=== PATIENT | male | born 1975 | race Caucasian/White ===

== ENCOUNTER 2018-09-28 21:50 | Emergency (ER) ==
[2018-09-28 22:05] VITALS: BP 125/82; TEMP 99.2; BMI 29.0
--- NOTE | 2018-09-28 22:26 | ED.PDOC ---
General ED Provider: Dr. RODRIGO GOEL-ER Chief Complaint: Bite Stated Complaint: renee got a wound on my face and its better Time Seen by Physician: 21:55 Mode of Arrival: Walk-In Information Source: Patient Exam Limitations: No limitations Primary Care Provider: RODRIGO GOEL Nursing and Triage Documentation Reviewed and Agree: Yes Does patient meet sepsis criteria?: No System Inflammatory Response Syndrome: Not Applicable Sepsis Protocol: For patient's 13 years and over: Temp is 96.8 and below OR 101 and greater Pulse >90 BPM Resp >20/minute Acutely Altered Mental Status Are patient's symptoms suggestive of a new infection, such as: -Pneumonia -Skin, Soft Tissue -Endocarditis -UTI -Bone, Joint Infection -Implantable Device -Acute Abdominal Infection -Wound Infection -Meningitis -Blood Stream Catheter Infection -Unknown Skin Complaint Exam - Skin/Soft Tissue Complaint/Exam Onset/Duration: 3 days Symptoms Are: Still present Timing: Constant Initial Severity: Mild Current Severity: Mild Location: chin Character: Reports: Redness, Swelling, Raised, Painful Aggravating: Reports: None Alleviating: Reports: None Associated Signs and Symptoms: Reports: Drainage, Tenderness Related Surgical History: Reports: None Recent Exposure to Others w/Similar Symptoms: No Skin Findings: Present: Erythema, Induration, Pustules Joint Tenderness Present: No Differential Diagnoses: Abscess, MRSA Review of Systems - Review Of Systems Constitutional: Reports: No symptoms Eyes: Reports: No symptoms Ears, Nose, Mouth, Throat: Reports: No symptoms Respiratory: Reports: No symptoms Cardiac: Reports: No symptoms GI: Reports: No symptoms : Reports: No symptoms Musculoskeletal: Reports: No symptoms Skin: Reports: Lumps Neurological: Reports: No symptoms Endocrine: Reports: No symptoms Hematologic/Lymphatic: Reports: No symptoms All Other Systems: Reviewed and Negative Past Medical History - Past Medical History Previously Healthy: Yes Endocrine: Reports: Unknown Cardiovascular: Reports: Unknown Respiratory: Reports: Unknown Hematological: Reports: Unknown Gastrointestinal: Reports: Unknown Genitourinary: Reports: Unknown Neuro/Psych: Reports: Unknown Musculoskeletal: Reports: Unknown Cancer: Reports: Unknown - Surgical History General Surgical History: Reports: Unknown - Family History Family History: Reports: Unknown - Social History Smoking Status: Current every day smoker, Heavy tobacco smoker Hx Substance Use: No Alcohol Screening: Occasionally - Immunizations Tetanus Shot up to Date: Yes Physical Exam - Physical Exam Appearance: Well-appearing, No pain distress, Well-nourished Pain Distress: Mild Eyes: CHARITO, EOMI, Conjunctiva clear ENT: Ears normal, Nose normal, Oropharynx normal Neck: Supple Respiratory: Airway patent Cardiovascular: RRR, Pulses normal, No rub, No murmur GI/: Soft, Nontender, No masses, Bowel sounds normal, No Organomegaly Musculoskeletal: Normal strength Skin: Warm, Dry, Normal color (exam confirm pustule on the left chin) Neurological: Sensation intact, Motor intact, Reflexes intact, Cranial nerves intact, Alert, Oriented Psychiatric: Affect appropriate Critical Care Note - Critical Care Note Total Time (mins): 0 Course - Course Orders, Labs, Meds: Orders Category Date Time Status WOUND CULTURE Stat LAB 09/28/18 22:23 Uncollected Vital Signs: Temp Pulse Resp BP Pulse Ox 09/28/18 21:52 99.2 F 115 H 20 125/82 95 Departure - Departure Time of Disposition: 22:26 Disposition: HOME SELF-CARE Discharge Problem: Abscess of chin Instructions: Abscess (ED) Condition: Good Pt referred to PMD for follow-up: Yes IPMP verified?: No Additional Instructions: continue antbx---wash wound with soap and water bid and apply bactroban ointment bid till healed---see me next wseek if not healed Allergies/Adverse Reactions: Allergies codeine Adverse Reaction (Severe, Verified 09/28/18 22:06) Vomiting Makes him loopy Home Medications: Ambulatory Orders Pantoprazole Sodium [Protonix] 20 mg PO DAILY 09/28/18 Sulfamethoxazole/Trimethoprim [Bactrim Ds 800/160 mg] 1 tab PO BID 09/28/18 Disposition Discussed With: Patient, Family
== END 2018-09-28 22:37 | disposition home or self-care (01) ==
LOC: ED 21:50
DX: L02.01 Cutaneous abscess of face (principal); F17.210 Nicotine dependence, cigarettes, uncomplicated
CPT/HCPCS: 87070; 87186; 99283